=== PATIENT | female | born 1965 | race American Indian/Alaskan Native ===

== ENCOUNTER 2016-07-17 07:58 | Outpatient (CLI) | payer MEDICARE ==
--- NOTE | 2016-07-17 09:17 | Mammography Report ---
BILATERAL MAMMOGRAM: FINDINGS: The breast tissue is heterogeneously dense, which could obscure detection of small masses (approximately 50%-75% glandular). No mass, distortion, suspicious calcification, or skin change is seen. There are no significant changes compared to her prior examination in February 2015. CAD was utilized. IMPRESSION: Negative mammogram. There is no mammographic evidence of malignancy. RECOMMENDATION: Follow-up per ACS guidelines. BI-RADS CATEGORY: 1 = Negative ACR BI-RADS MAMMOGRAPHIC CODES: 0 = Needs additional imaging evaluation; 1 = Negative; 2 = Benign; 3 = Probably benign; 4 = Suspicious; 5 = Malignant; 6 = Known biopsy-proven malignancy COMMENT: 1. Dense breast tissue, i.e., adenosis, fibrocystic changes, etc., may obscure an underlying neoplasm. 2. Approximately 10% of cancers are not detected with mammography. 3. A negative mammography report should not delay biopsy if a clinically suspicious mass is present. COMMENT: Patient follow-up letters are generated in [employer].
== END 2016-07-17 07:59 | disposition home or self-care (01) ==
LOC: MAMMO 07:58
PROVIDERS: ATTEND Internal Medicine
DX: Z12.31 Encounter for screening mammogram for malignant neoplasm of breast (principal)
CPT/HCPCS: 77067; G0202

== ENCOUNTER 2016-07-31 08:56 | Emergency (ER) | payer MEDICARE ==
[2016-07-31 09:35] LABS: Basophils % (Auto) 1.4 % (0.0-1.8); Eosinophils % (Auto) 5.3 % (0.0-4.3); Hematocrit 30.3 % (30.3-42.9); Hemoglobin 9.5 gm/dl (10.1-14.3); Mean Corpuscular HGB Conc 31 % (30-34); Mean Corpuscular Volume 71 fl (79-97); Platelet Count 323 K/mm3 (140-440); Red Blood Count 4.27 M/mm3 (3.65-5.03); Red Cell Distribution Width 17.5 % (13.2-15.2); White Blood Count 3.6 K/mm3 (4.5-11.0)
[2016-07-31 09:50] LABS: Anion Gap 16 mmol/L; BUN/Creatinine Ratio 16.66; Blood Urea Nitrogen 10 mg/dL (7-17); Calcium 8.5 mg/dL (8.4-10.2); Carbon Dioxide 24 mmol/L (22-30); Glucose 94 mg/dL (65-100); Potassium 4.4 mmol/L (3.6-5.0); Sodium 140 mmol/L (137-145)
[2016-07-31 09:57] LABS: Mean Corpuscular Hemoglobin 22 pg (28-32)
--- NOTE | 2016-07-31 13:31 | Emergency Department Report ---
ED General Adult HPI - General Chief complaint: Chest Pain Stated complaint: PRESSURE AND WEAKNESS RT SIDE OF CHEST AND FACE Time Seen by Provider: 07/31/16 12:50 Source: patient Mode of arrival: Ambulatory Limitations: No Limitations - History of Present Illness Initial comments: The patient states that she has been to various physicians multiple times for this very same pain complaint. She states that she had a CTA of her chest 2 weeks ago and it was negative for pulmonary embolism. She states that she went to her primary care physician 1 week ago and was treated symptomatically. Her pain began in 2014 when she had an equivocal pulmonary embolism. She was treated with a relative for one month and then it was discontinued due to bleeding. In addition the patient has some chronic pain in the posterior right scapular area that she has had related to rotator cuff injury. She is status post surgical repair several years ago. Patient denies any leg pain or swelling. She's had no recent travel. She has no history of DVT. Her pain is described as nonpleuritic. It is not associated with any respiratory symptoms. She states that she sometimes has some "clear phlegm", in the morning the pain is in the right anterior chest and sometimes in the right subscapular area as well indicated. It is intermittent. She has had this for many years. She denies any fever or chills or significant cough. -: year(s) Location: chest, back Radiation: non-radiation Severity scale (0 -10): 4 Consistency: intermittent, now resolved Improves with: none Worsens with: none Associated Symptoms: denies other symptoms Treatments Prior to Arrival: none - Related Data Home Medications Medication Instructions Recorded Confirmed Last Taken Azelastine HCl 1 inhalation INNOSTRIL TID PRN MDD 07/31/16 07/31/16 Unknown 4 Buspirone HCl [busPIRone] 15 mg PO DAILY 07/31/16 07/31/16 Unknown Esomeprazole Magnesium [NexIUM] 40 mg PO DAILY 07/31/16 07/31/16 Unknown Hydrochlorothiazide [HCTZ] 12.5 mg PO DAILY 07/31/16 07/31/16 Unknown Tizanidine HCl [tiZANidine] 4 mg PO TID PRN 07/31/16 07/31/16 Unknown traMADol 50 mg PO DAILY 07/31/16 07/31/16 Unknown Previous Rx's Medication Instructions Recorded Last Taken Type traMADol [Ultram] 50 mg PO Q6HR PRN #14 tablet 07/31/16 Unknown Rx Allergies Allergy/AdvReac Type Severity Reaction Status Date / Time No Known Allergies Allergy Unverified 07/24/14 15:05 ED Review of Systems ROS: Stated complaint: PRESSURE AND WEAKNESS RT SIDE OF CHEST AND FACE Other details as noted in HPI Constitutional: denies: chills, fever Eyes: denies: eye pain, eye discharge, vision change ENT: denies: ear pain, throat pain Respiratory: denies: cough, shortness of breath, wheezing Cardiovascular: chest pain. denies: palpitations Endocrine: no symptoms reported Gastrointestinal: denies: abdominal pain, nausea, diarrhea Genitourinary: denies: urgency, dysuria, discharge Musculoskeletal: denies: back pain, joint swelling, arthralgia Skin: denies: rash, lesions Neurological: denies: headache, weakness, paresthesias Psychiatric: denies: anxiety, depression Hematological/Lymphatic: denies: easy bleeding, easy bruising ED Past Medical Hx - Past Medical History Previous Medical History?: Yes Hx Pulmonary Embolism: Yes (2014) Hx GERD: Yes Hx Arthritis: Yes (rheumatory arthritis) - Surgical History Past Surgical History?: Yes Additional Surgical History: rt rotator cuff; tubaligation 1995; rt toe surgery 2010 - Social History Smoking Status: Never Smoker - Medications Home Medications: Home Medications Medication Instructions Recorded Confirmed Last Taken Type Azelastine HCl 1 inhalation INNOSTRIL TID PRN MDD 07/31/16 07/31/16 Unknown History 4 Buspirone HCl [busPIRone] 15 mg PO DAILY 07/31/16 07/31/16 Unknown History Esomeprazole Magnesium [NexIUM] 40 mg PO DAILY 07/31/16 07/31/16 Unknown History Hydrochlorothiazide [HCTZ] 12.5 mg PO DAILY 07/31/16 07/31/16 Unknown History Tizanidine HCl [tiZANidine] 4 mg PO TID PRN 07/31/16 07/31/16 Unknown History traMADol 50 mg PO DAILY 07/31/16 07/31/16 Unknown History traMADol [Ultram] 50 mg PO Q6HR PRN #14 tablet 07/31/16 Unknown Rx ED Physical Exam - General Limitations: No Limitations General appearance: alert, in no apparent distress - Head Head exam: Present: atraumatic, normocephalic - Eye Eye exam: Present: normal appearance, PERRL, EOMI. Absent: scleral icterus - ENT ENT exam: Present: mucous membranes moist - Neck Neck exam: Present: normal inspection - Respiratory Respiratory exam: Present: normal lung sounds bilaterally. Absent: respiratory distress - Cardiovascular Cardiovascular Exam: Present: regular rate, normal rhythm. Absent: systolic murmur, diastolic murmur, rubs, gallop - GI/Abdominal GI/Abdominal exam: Present: soft, normal bowel sounds. Absent: distended, tenderness, guarding, rebound, rigid - Extremities Exam Extremities exam: Present: normal inspection, full ROM, normal capillary refill. Absent: tenderness, pedal edema, joint swelling, calf tenderness - Back Exam Back exam: Present: normal inspection, tenderness (in the right subscapular area reproducing the patient's pain) - Neurological Exam Neurological exam: Present: alert, oriented X3, CN II-XII intact. Absent: motor sensory deficit - Psychiatric Psychiatric exam: Present: normal affect, normal mood - Skin Skin exam: Present: warm, dry, intact, normal color. Absent: rash ED Course Vital Signs 07/31/16 07/31/16 07/31/16 09:03 12:19 12:21 Temperature 98.4 F Pulse Rate 92 H 65 Respiratory 18 13 Rate Blood Pressure 153/70 Blood Pressure [Left] O2 Sat by Pulse 100 100 100 Oximetry 07/31/16 07/31/16 12:29 12:30 Temperature 98.1 F Pulse Rate 62 Respiratory 14 14 Rate Blood Pressure Blood Pressure 139/85 [Left] O2 Sat by Pulse 100 100 Oximetry - Reevaluation(s) Reevaluation #1: The patient's heart rate is in the 60s. Her pulse oximetry is 99-100%. She is in no distress. I do not think that her chronic pain syndrome requires further imaging study at this time. She will be treated symptomatically. She is appropriate for follow-up with her primary care physician. 07/31/16 13:33 ED Medical Decision Making - Lab Data Result diagrams: 07/31/16 09:10 07/31/16 09:10 Laboratory Results - last 24 hr 07/31/16 07/31/16 07/31/16 09:10 09:10 09:10 WBC 3.6 L RBC 4.27 Hgb 9.5 L Hct 30.3 MCV 71 L MCH 22 L MCHC 31 RDW 17.5 H Plt Count 323 Lymph % (Auto) 36.5 H [place] % (Auto) 14.7 H Eos % (Auto) 5.3 H Baso % (Auto) 1.4 Lymph # 1.3 [place] # 0.5 Eos # 0.2 Baso # 0.1 Seg Neutrophils % 42.1 Seg Neutrophils # 1.5 L Sodium 140 Potassium 4.4 Chloride 104.0 Carbon Dioxide 24 Anion Gap 16 BUN 10 Creatinine 0.6 L Estimated GFR > 60 BUN/Creatinine Ratio 16.66 Glucose 94 Calcium 8.5 Troponin T < 0.010 HCG, Qual Negative 07/31/16 12:03 WBC RBC Hgb Hct MCV MCH MCHC RDW Plt Count Lymph % (Auto) [place] % (Auto) Eos % (Auto) Baso % (Auto) Lymph # [place] # Eos # Baso # Seg Neutrophils % Seg Neutrophils # Sodium Potassium Chloride Carbon Dioxide Anion Gap BUN Creatinine Estimated GFR BUN/Creatinine Ratio Glucose Calcium Troponin T < 0.010 HCG, Qual - EKG Data -: EKG Interpreted by Wi EKG shows normal: sinus rhythm, axis, intervals, QRS complexes, ST-T waves Rate: normal - EKG Data Interpretation: normal EKG Critical care attestation.: If time is entered above; I have spent that time in minutes in the direct care of this critically ill patient, excluding procedure time. ED Disposition Clinical Impression: Atypical chest pain Disposition: DISCHARGED TO HOME OR SELFCARE Is pt being admited?: No Does the pt Need Aspirin: No Condition: Stable Instructions: Chest Pain (ED) Additional Instructions: Follow up with your primary care physician. Return any acute change or problem. Prescriptions: traMADol [Ultram] 50 mg PO Q6HR PRN #14 tablet PRN Reason: Pain Referrals: SUSY HERNANDEZ MD [Primary Care Provider] - 3-5 Days Time of Disposition: 13:44
[2016-07-31 14:09] VITALS: BP 127/71
== END 2016-07-31 13:50 | disposition home or self-care (01) ==
LOC: ED 08:56
DX: R07.89 Other chest pain (principal); K21.9 Gastro-esophageal reflux disease without esophagitis; M06.9 Rheumatoid arthritis, unspecified; I26.99 Other pulmonary embolism without acute cor pulmonale
CPT/HCPCS: 36415; 80048; 84484; 84703; 85025; 93005; 93010

== ENCOUNTER 2017-08-03 06:59 | Outpatient (CLI) | payer MEDICARE ==
--- NOTE | 2017-08-03 08:31 | Mammography Report ---
BILATERAL DIGITAL SCREENING MAMMOGRAM with CAD: 08/03/17 06:59:00 CLINICAL: Routine screening. COMPARISON:02/28/15 FINDINGS: The breasts are heterogeneously dense, which may obscure small masses. No mass, architectural distortion or suspicious calcifications. IMPRESSION: No mammographic evidence of malignancy. BI-RADS CATEGORY: 1 - - Negative RECOMMENDATION: Routine mammographic screening in one year. COMMENT: Patient follow-up letters are generated by our [employer] application.
== END 2017-08-03 07:00 | disposition home or self-care (01) ==
LOC: MAMMO 06:59
PROVIDERS: ATTEND Internal Medicine
DX: Z12.31 Encounter for screening mammogram for malignant neoplasm of breast (principal)
CPT/HCPCS: 77067

== ENCOUNTER 2018-08-30 07:49 | Outpatient (CLI) | payer MEDICARE ==
--- NOTE | 2018-08-30 09:29 | Mammography Report ---
BILATERAL DIGITAL SCREENING MAMMOGRAM with CAD: 08/30/18 07:49:00 CLINICAL: Routine screening. COMPARISON: 08/03/17 FINDINGS: There are bilateral scattered areas of fibroglandular density.No mass, architectural distortion or suspicious calcifications. IMPRESSION: No mammographic evidence of malignancy. BI-RADS CATEGORY: 1 -- Negative RECOMMENDATION: Routine mammographic screening in one year. COMMENT: Patient follow-up letters are generated by our [employer] application.
== END 2018-08-30 07:50 | disposition home or self-care (01) ==
LOC: MAMMO 07:49
PROVIDERS: ATTEND Internal Medicine
DX: Z12.31 Encounter for screening mammogram for malignant neoplasm of breast (principal); K21.9 Gastro-esophageal reflux disease without esophagitis; M19.90 Unspecified osteoarthritis, unspecified site
CPT/HCPCS: 77067

== ENCOUNTER 2019-12-07 11:10 | Outpatient (CLI) | payer MEDICARE ==
--- NOTE | 2019-12-07 13:27 | Mammography Report ---
DIGITAL SCREENING MAMMOGRAM WITH CAD, 12/07/2019 INDICATION: Routine screening mammography. SCREENING MAMMOGRAM TECHNIQUE: Digital bilateral 2D mammography was obtained in the craniocaudal and mediolateral obliq ue projections. This examination was interpreted with the benefit of Computer-Aided Detection analysi s. COMPARISON: 08/30/2018 FINDINGS: Breast Density: There are scattered areas of fibroglandular density. There is no evidence of dominant mass, suspicious calcifications or architectural distortion in eithe r breast. IMPRESSION: No evidence of malignancy Follow up recommendation: Routine yearly BI-RADS Category 1: Negative. A "normal" or negative report should not discourage follow up or biopsy of a clinically significant f inding. A written summary of these findings will be mailed to the patient. The patient will be entered into a mammography reporting system which will generate a reminder letter for the patient's next appointmen t at the appropriate interval. The [employer] recommends yearly mammograms starting at age 40 and continuing as l beryl as a woman is in good health. Breast MRI is recommended for women with an approximate 20-25% or greater lifetime risk of breast cancer, including women with a strong family history of breast or ova alicja cancer or who have been treated for Hodgkin's disease. Signer Name: Shubham Glez MD Signed: 12/07/2019 1:23 PM Workstation Name: [id number]
== END 2019-12-07 11:11 | disposition home or self-care (01) ==
LOC: MAMMO 11:10
PROVIDERS: ATTEND Internal Medicine
DX: Z12.31 Encounter for screening mammogram for malignant neoplasm of breast (principal)
CPT/HCPCS: 77067

== ENCOUNTER 2021-01-08 10:00 | Outpatient (CLI) | payer MEDICARE ==
--- NOTE | 2021-01-08 11:55 | Mammography Report ---
DIGITAL SCREENING MAMMOGRAM WITH CAD, 01/08/2021 CLINICAL INFORMATION / INDICATION: Routine screening mammography. SCREENING MAMMOGRAM TECHNIQUE: Digital bilateral 2D mammography was obtained in the craniocaudal and mediolateral obliqu e projections. This examination was interpreted with the benefit of Computer-Aided Detection analysis . COMPARISON: 02/28/2015 through 12/07/2019. FINDINGS: Breast Density: There are scattered areas of fibroglandular density. No dominant mass, suspicious calcifications, or architectural distortion in the right breast. There are new grouped calcifications in the left upper outer quadrant extending towards the nipple. N o other change. IMPRESSION: New grouped calcifications in the left upper outer quadrant. Magnification views are ritchie mmended for further characterization. Follow up recommendation: Special View: Mag BI-RADS Category 0: Incomplete. Needs additional imaging evaluation and/or prior mammograms for shima [place]. A "normal" or negative report should not discourage follow up or biopsy of a clinically significant f inding. A written summary of these findings will be mailed to the patient. The patient will be entered into a mammography reporting system which will generate a reminder letter for the patient's next appointmen t at the appropriate interval. The [employer] recommends yearly mammograms starting at age 40 and continuing as l beryl as a woman is in good health. Breast MRI is recommended for women with an approximate 20-25% or greater lifetime risk of breast cancer, including women with a strong family history of breast or ova alicja cancer or who have been treated for Hodgkin's disease. Signer Name: Thien Rivero MD Signed: 01/08/2021 11:50 AM Workstation Name: [id number]
== END 2021-01-08 11:55 | disposition home or self-care (01) ==
LOC: MAMMO 10:00
PROVIDERS: ATTEND Internal Medicine
DX: Z12.31 Encounter for screening mammogram for malignant neoplasm of breast (principal); N64.89 Other specified disorders of breast
CPT/HCPCS: 77067

== ENCOUNTER 2021-01-30 07:36 | Outpatient (CLI) | payer MEDICARE ==
--- NOTE | 2021-01-30 08:46 | Mammography Report ---
DIGITAL DIAGNOSTIC MAMMOGRAM WITH CAD, 01/30/2021 INDICATION: Abnormal screening mammogram. Screening recall of the left breast for calcifications. TECHNIQUE: Digital left mammographic imaging was performed. Magnification views were obtained. This examination was interpreted with the benefit of Computer-aided Detection analysis. COMPARISON: Screening mammogram, 01/08/2021 and 12/07/2019 FINDINGS: Breast Density: There are scattered areas of fibroglandular density. Magnification views of the left breast were obtained which demonstrate pleomorphic calcifications in a segmental distribution in the upper outer breast middle depth extending to the periareolar region. In total, this area measures approximately 9.0 x 3.3 cm. IMPRESSION: Follow up recommendation: Biopsy BI-RADS Category 4: Suspicious for Malignancy. Left breast calcifications as described above which a re suspicious for malignancy. Surgical consultation and stereotactic guided biopsy are recommended. A "normal" or negative report should not discourage follow up or biopsy of a clinically significant f inding. A written summary of these findings will be mailed to the patient. The patient will be entered into a mammography reporting system which will generate a reminder letter for the patient's next appointmen t at the appropriate interval. According to the [employer], yearly mammograms are recommended starting at age 40 and continuing as long as a woman is in good health. Breast MRI is recommended for women with an dhaval roximately 20-25% or greater lifetime risk of breast cancer, including women with a strong family his tory of breast or ovarian cancer and women who have been treated for Hodgkin's disease. Signer Name: Ivonne Mcmahon MD Signed: 01/30/2021 8:42 AM Workstation Name: [id number]
== END 2021-01-30 07:37 | disposition home or self-care (01) ==
LOC: MAMMO 07:36
PROVIDERS: ATTEND Internal Medicine
DX: R92.1 Mammographic calcification found on diagnostic imaging of breast (principal)

== ENCOUNTER 2021-02-04 11:55 | Outpatient (CLI) | payer MEDICARE ==
--- NOTE | 2021-02-04 16:25 | Mammography Report ---
STEREOTACTIC GUIDED LEFT BREAST BIOPSY, 02/04/2021 CLINICAL INFORMATION / INDICATION: ABNORMAL AND INCONCLUSIVE FINDINGS ON DIAG IMAGING OF BREAST. COMPARISON: Prior mammogram 01/30/2021 PROCEDURE: Risks, benefits, and indications to the procedure were discussed with the patient in detail, includin g bleeding, infection, hematoma formation, and inadequate tissue sampling. The patient agreed to proc eed with both verbal and written consent. A timeout procedure was performed with 2 patient identifier s. Targeted stereotactic images were obtained of the area of interest. The targeted area was identified and coordinates were determined. The breast was cleansed and prepped in the usual sterile fashion. Li docaine 1% with and without epinephrine was used for local anesthesia. Under direct stereotatic hedy nce, an 8 gauge Mammotome biopsy device was advanced to the correct position and multiple vacuum-assi sted core samples were obtained. Postbiopsy images confirm satisfactory tissue sampling within the bi opsy cavity. Specimen radiograph shows several calcifications within the sampled tissue. A biopsy mar ker was then deployed at the biopsy site. The biopsy device was removed. Hemostasis was achieved with manual pressure. A sterile pressure dressing was applied to the skin. Post-biopsy mammogram was obta ined. The patient tolerated the procedure without difficulty. No complications were encountered. Postbiopsy instructions were discussed with the patient and given in writing. IMPRESSION: 1. Technically successful stereotactic guided left breast biopsy. Biopsy results are pending and will be reported in an addendum. Signer Name: Dyan Reid MD Signed: 02/04/2021 4:21 PM Workstation Name: [id number]
--- NOTE | 2021-02-04 16:27 | Mammography Report ---
DIGITAL DIAGNOSTIC MAMMOGRAM WITH CAD , 02/04/2021 CLINICAL INFORMATION / INDICATION: Postprocedure mammogram following left stereotactic biopsy N92.1 TECHNIQUE: Digital left mammographic imaging was performed. This examination was interpreted with the benefit of Computer-aided Detection analysis. COMPARISON: Recent mammogram 01/30/2021 FINDINGS: Breast Density: There are scattered areas of fibroglandular density. Postprocedure mammogram following left stereotactic biopsy shows good sampling of the calcifications in question within the upper outer quadrant, middle depth. A biopsy clip is present within the epicen ter of the calcifications. IMPRESSION: Successful left stereotactic biopsy. Follow up recommendation: Awaiting pathology results Post biopsy imaging. A "normal" or negative report should not discourage follow up or biopsy of a clinically significant f inding. A written summary of these findings will be mailed to the patient. The patient will be entered into a mammography reporting system which will generate a reminder letter for the patient's next appointmen t at the appropriate interval. According to the [employer], yearly mammograms are recommended starting at age 40 and continuing as long as a woman is in good health. Breast MRI is recommended for women with an dhaval roximately 20-25% or greater lifetime risk of breast cancer, including women with a strong family his tory of breast or ovarian cancer and women who have been treated for Hodgkin's disease. Signer Name: Dyan Reid MD Signed: 02/04/2021 4:22 PM Workstation Name: [id number]
== END 2021-02-04 11:56 | disposition home or self-care (01) ==
LOC: SPVWC 11:55
PROVIDERS: ATTEND Surgery
DX: R92.8 Other abnormal and inconclusive findings on diagnostic imaging of breast (principal); N92.1 Excessive and frequent menstruation with irregular cycle; K21.9 Gastro-esophageal reflux disease without esophagitis; M19.90 Unspecified osteoarthritis, unspecified site; Z79.899 Other long term (current) drug therapy
CPT/HCPCS: 19081; 77065; 88305; A4648; 88341; 88342